=== PATIENT | female | born 1990 | race American Indian/Alaskan Native ===

== ENCOUNTER 2020-03-19 05:25 | Emergency (ER) | payer SELFPAY ==
[2020-03-19 05:56] VITALS: BP 127/89
[2020-03-19] MEDS ORDERED: CLINDAMYCIN 150 MG CAP PO SCH (07:39)
[2020-03-19] MEDS ORDERED: oxyCODONE /ACETAMINOPHEN 5-325MG TAB PO ONE (07:39)
[2020-03-19] MEDS ORDERED: KETOROLAC 60 MG/2 ML INJ IM ONE (07:39)
--- NOTE | 2020-03-19 07:42 | Emergency Department Report ---
ED General Adult HPI - General Chief complaint: Dental/Oral Stated complaint: TOOTHACHE Time Seen by Provider: 03/19/20 07:31 Source: family Mode of arrival: Stretcher Limitations: No Limitations - History of Present Illness Initial comments: 30-year-old -[place] female patient presents with complaints of left lower dental pain x2 days with facial swelling x1 day. She denies any fever/chills/sweats or difficulty opening/closing her jaw/dysphagia. Patient rates her current pain as a 10/10 in severity and states it worsens with movement of the jaw and chewing and touch. She reports previous issues with the same tooth due to having the tooth fractured years ago. She denies following with a dentist currently. She also denies any prior medical history. Severity scale (0 -10): 10 - Related Data Previous Rx's Medication Instructions Recorded Last Taken Type Acetaminophen/Codeine [Tylenol 1 tab PO Q6H PRN #8 tab 03/19/20 Unknown Rx /Codeine # 3 tab] Clindamycin [Clindamycin CAP] 300 mg PO Q6H 10 Days #40 capsule 03/19/20 Unknown Rx Diclofenac Sodium 75 mg PO BID PRN #14 tablet. 03/19/20 Unknown Rx Allergies Allergy/AdvReac Type Severity Reaction Status Date / Time No Known Allergies Allergy Unverified 03/19/20 05:48 ED Review of Systems ROS: Stated complaint: TOOTHACHE Other details as noted in HPI Constitutional: denies: chills, diaphoresis, fever, malaise, weakness ENT: denies: throat pain Respiratory: denies: cough, shortness of breath Cardiovascular: denies: chest pain Skin: denies: rash, lesions, change in color Hematological/Lymphatic: denies: swollen glands ED Past Medical Hx - Past Medical History Previous Medical History?: No - Surgical History Past Surgical History?: No - Social History Smoking Status: Current Every Day Smoker Substance Use Type: None - Medications Home Medications: Home Medications Medication Instructions Recorded Confirmed Last Taken Type Acetaminophen/Codeine [Tylenol 1 tab PO Q6H PRN #8 tab 03/19/20 Unknown Rx /Codeine # 3 tab] Clindamycin [Clindamycin CAP] 300 mg PO Q6H 10 Days #40 capsule 03/19/20 Unknown Rx Diclofenac Sodium 75 mg PO BID PRN #14 tablet. 03/19/20 Unknown Rx ED Physical Exam - General Limitations: No Limitations General appearance: alert, in no apparent distress - Head Head exam: Present: atraumatic, normocephalic - Eye Eye exam: Present: normal appearance - Expanded ENT Exam Expanded Mouth exam: Present: tongue normal. Absent: drooling, trismus Teeth exam: Present: fractured tooth # 1 - Fractured, Dental Tenderness (Erythema and swelling noted about the gums without obvious abscess. The overlying cheek area is moderately swollen with significant tenderness to palpation and no overlying cellulitic changes are noted) Throat exam: Negative: normal inspection, tonsillar erythema, tonsillomegaly, tonsillar exudate - Neck Neck exam: Present: full ROM. Absent: tenderness, lymphadenopathy - Respiratory Respiratory exam: Absent: respiratory distress - Cardiovascular Cardiovascular Exam: Present: regular rate, normal rhythm - Back Exam Back exam: Present: normal inspection - Neurological Exam Neurological exam: Present: alert, oriented X3 - Psychiatric Psychiatric exam: Present: normal affect, normal mood - Skin Skin exam: Present: warm, dry, intact, normal color. Absent: rash ED Course Vital Signs 03/19/20 05:48 Temperature 99 F Pulse Rate 108 H Respiratory 18 Rate Blood Pressure 127/89 [Left] O2 Sat by Pulse 100 Oximetry ED Medical Decision Making - Medical Decision Making 30-year-old -[place] female patient presents with complaints of left lower dental pain x2 days with facial swelling x1 day. She denies any fever/chills/sweats or difficulty opening or closing her jaw. Patient rates her current pain as a 10/10 in severity and states it worsens with movement of the jaw and chewing and touch. She reports previous issues with the same tooth due to having the tooth fractured years ago. She denies following with a dentist currently. Fracture tooth with surrounding erythema of the gingiva noted and overlying swelling of the cheek without cellulitis noted. Patient given dose of clindamycin here along with pain medicine. She is to discharge home on clindamycin and follow-up with a dental specialist within 24 hours-a dental clinic list was provided for the patient. Her vitals are normal, she is well- appearing, she is stable for discharge home. Strict return precautions were discussed in great detail with patient who verbalizes understanding. Critical care attestation.: If time is entered above; I have spent that time in minutes in the direct care of this critically ill patient, excluding procedure time. ED Disposition Clinical Impression: Dental infection Disposition: DC- TO HOME OR SELFCARE Is pt being admited?: No Condition: Stable Instructions: Dental Abscess (ED) Additional Instructions: Please follow-up with a dental specialist from the list provided within 24-hour Prescriptions: Clindamycin [Clindamycin CAP] 300 mg PO Q6H 10 Days #40 capsule Diclofenac Sodium 75 mg PO BID PRN #14 tablet.dr PRN Reason: Pain, Moderate (4-6) Acetaminophen/Codeine [Tylenol /Codeine # 3 tab] 1 tab PO Q6H PRN #8 tab PRN Reason: Pain , Severe (7-10) Referrals: JERI CEBALLOS MD [Primary Care Provider] - 3-5 Days
== END 2020-03-19 08:15 | disposition home or self-care (01) ==
LOC: ED 05:25
DX: K02.9 Dental caries, unspecified (principal); F17.200 Nicotine dependence, unspecified, uncomplicated
CPT/HCPCS: 96372; 99283; J1885